=== PATIENT | female | born 1990 | race Caucasian/White ===

== ENCOUNTER 2017-08-20 23:17 | Emergency (ER) | payer MEDICAID, OTHER ==
--- NOTE | 2017-08-21 07:41 | OBDCSUM ---
Datetime: 08/21/2017 01:20 Discharged to, Provider: Home Follow up at, Provider: Dr. Cardenas Disch Instr Activity: Normal activity Disch Instr Diet: Regular Discharge Time: 08/21/2017 01:20 Follow up in weeks, Provider: 08/23/2017 Disch Referrals: None Discharge Diagnosis Prov Other: Early labor
--- NOTE | 2017-08-21 07:41 | OBHP ---
Datetime: 08/21/2017 01:43 IP Adm Impression: Term, intrauterine ; No Active Labor; Intact Membranes IP Admit Plan: Observation/Evaluation; Discharge home Admit Comment, IP Provider: Pt is a 27 y/o with IUP 39.4 wks (OLYA 08/23) presenting to [facility] wit h CTX since 9pm and Vaginal bleeding noted at 11pm. Pt states ctx are mild-mod occuring q 15-20min ir regularily. Vaginal bleeding described as minimal, bright red, no clots. Also feels small leakage of fluid - mucous like +FM. Was seen in clinic 4 days ago and was 2cm. PNC: Ann-Marie Judge. Plans for induction tomorrow as per pt. No documentation of prental c are records on hand. Pt undertands that her PMD does not have privledges to [facility] OBHx: denies PMHx: denies SHx: denies Meds: PNV Allergies: denies Social: Denies habits x3 Vitals: BP 136/74, HR 91 PE: General: Comfortable appearing female, occasional appears mildly distressed during ctx Cardio: RRR, no murmurs Pulm: CTABL Abdomen: Gravid, NT Ext: no edema Cervix 2cm, high Speculum: no pooling, ferns negative Limited bedside U/S: adequate fluid, 9.2cm FHR 148, reactive, no decels A: with IUP 39.4 wks presenting in early labor w/ bloody show. FHR tracing reassuring. P: Pt was offered to be admitted for management of labor pain, but pt declined. Labor precautions given. Advised pt to f/u with OB tomorrow as planned. Discussed case with Dr. Erik Fountain, PGY2 OB Hospitalist on-call. With PGY2, I saw and examined this patient. Agree with note. NESSARoselia Initially, she wanted to be admitted for pain management, labor augmentation and possible delivery ...she decided later to leave. She was accompained by her partner and toddler step son. She had no active VB while she was in [facility] Extremities - PN: Normal Abdomen - PN: Normal Back - PN: Normal Lungs - PN: Normal Heart - PN: Normal Neurologic - PN: Normal HEENT - PN: Normal General - PN: Normal Presentation-Admit: Vertex IP Fetus A Comments: Sono done AF 9.2 - cephalic BPP 8/8 FHR - Baseline A Provider: 125 Membranes, Provider: Intact Pool Provider: Negative Ferning Provider: Negative EGA AdmitDate IP: 39.5 Vital Signs Provider: Reviewed IP Chief Complaint: Uterine contractions; Suspected ruptured membranes NICHD Variability Prov Fetus A: Moderate 6-25bpm NICHD Accel Fetus A IP Provider: [id number] FHR Category Provider Fetus A: Category I NICHD Decel Fetus A IP Provider: None Dilatation, Provider: 2 Effacement, Provider: long Station, Provider:
[2017-08-21 08:41] VITALS: BP 86/54; PULSE 93; TEMP 98.4
== END 2017-08-21 01:20 | disposition home or self-care (01) ==
LOC: H.EROB2 23:17
DX: O26.853 Spotting complicating pregnancy, third trimester (principal); O26.93 Pregnancy related conditions, unspecified, third trimester; R10.2 Pelvic and perineal pain; Z3A.39 39 weeks gestation of pregnancy